=== PATIENT | male | born 1945 | race Caucasian/White ===

== ENCOUNTER 2022-05-09 09:46 | Observation (INO) | payer MEDICARE, BC ==
[~2022-05-09] VITALS: Ht 180.3 cm; Wt 104.7 kg
[2022-05-09 10:06] LABS: BASOPHILS ABSOLUTE AUTO 0.06 K/mm3 (0.00-0.23); BASOPHILS PERCENT AUTO 1 % (0-2); EOSINOPHILS PERCENT AUTO 3 % (0-6); Hematocrit 41.8 % (37.0-53.0); Hemoglobin 13.8 g/dL (13.5-17.5); IMMATURE GRAN ABSOLUTE AUTO 0.01 K/mm3 (0.00-0.10); IMMATURE GRAN PERCENT AUTO 0 % (0-1); LYMPHOCYTES ABSOLUTE AUTO 1.68 K/mm3 (0.84-5.20); LYMPHOCYTES PERCENT AUTO 24 % (21-46); MONOCYTES ABSOLUTE AUTO 0.69 K/mm3 (0.16-1.47); MONOCYTES PERCENT AUTO 10 % (4-13); Mean Corpuscular HGB 30.5 pg (26.0-34.0); Mean Corpuscular Volume 93 fL (80-100); NEUTROPHILS ABSOLUTE AUTO 4.38 K/mm3 (1.96-9.15); NEUTROPHILS PERCENT AUTO 63 % (41-73); Platelet Count 238 K/mm3 (150-400); RDW Coefficient Variation 13.3 % (11.7-14.2); RDW Standard Deviation 45.3 fL (35.1-46.3); Red Blood Cell Count 4.52 M/mm3 (4.30-5.90); White Blood Cell Count 7.02 K/mm3 (4.00-11.30)
[2022-05-09 10:37] LABS: Alanine Aminotransfer (ALT/SGP 33 U/L (12-78); Albumin, Blood 3.8 g/dL (3.4-5.0); Albumin/Globulin Ratio 1.2 (0.8-1.8); Alk Phos 62 U/L (50-136); Anion Gap 2 mmol/L (6-16); Aspartate Aminotrans (AST/SGOT 19 U/L (12-37); Bilirubin, Total 0.6 mg/dL (0.1-1.0); Blood Urea Nitrogen 23 mg/dL (8-24); Bun/Creatinine Ratio 20.2 (12.0-20.0); CO2, Blood 29 mmol/L (21-32); Calcium, Blood 10.1 mg/dL (8.5-10.1); Chloride, Blood 107 mmol/L (98-108); Creatinine, Blood 1.14 mg/dL (0.60-1.20); Ethanol (Alcohol), Blood, Med <3 mg/dL; Globulin, Blood 3.2 g/dL (2.2-4.0); Glomerular Filtration Rate 67 (60-); Glucose, Blood 129 mg/dL (70-99); Potassium, Blood 3.9 mmol/L (3.5-5.5); Sodium, Blood 138 mmol/L (136-145)
[2022-05-09 11:06] LABS: Source, Urine Clean Catch
[2022-05-09 11:18] LABS: Bilirubin, Urine Neg (Neg); Blood, Urine Neg (Neg); Glucose Qualitative, Urine Neg (Neg); Ketones, Urine Neg (Neg); Leukocyte Esterase, Urine Neg (Neg); Nitrite, Urine Neg (Neg); Protein, Urine Neg (Neg); Urobilinogen, Urine NORM (Normal)
[2022-05-09 11:19] LABS: Appearance, Urine Clear (Clear); Color, Urine Yellow (P-Yellow)
[2022-05-09 11:33] LABS: U Amphetamine Screen Not Detected; U Barbituate Screen Not Detected; U Benzodiazapine Screen Not Detected; U Buprenorphine Screen Not Detected; U Cannabinoids Screen Not Detected; U Cocaine Screen Not Detected; U Methadone Screen Not Detected; U Methamphetamine Screen Not Detected; U Opiates Screen Not Detected; U Oxycodone Screen Not Detected; U Phencyclidine Screen Not Detected; U Propoxyphene Screen Not Detected
[2022-05-09] MEDS ORDERED: QUIN10 PO (11:35)
--- NOTE | 2022-05-09 17:26 | NUR ---
LATE ENTRY/RECEIVED FROM ED RECEIVED REPORT FROM RAHAT CARPIO. RECEIVED PT TO ROOM 359 [facility] [employer]. PT PLACED HIMSELF INTO BED. MADE COMFORTABLE, ORIENTED TO ROOM AND UNIT ROOM. ADMIT DONE. PT A&O X 4. SLOW TO RESPOND TO QUESTIONS ASKED DURING ADMIT PROCESS THOUGH ANSWERED APPROPRIATELY. TELE PLACED, SHOWS NSR WITH HR 68. VSS. PT STATES HIS MD IN [place] IS DR. LILIANA ARRIAGA. HE ALSO STATES HE TAKES ELIQUIS, TRIAMTERENE-HCTZ AND QUINIPRIL 20 MG DAILY, A MULTI VIT AND USES A NASAL SPRAY NEEDED. HIS IS STAYING WITH THEIR MOTORHOME AT [facility]. THEY WERE GOING HOME TO [place] FROM AN EXTENDED STAY IN [place] SEEING FRIENDS.
--- NOTE | 2022-05-09 19:03 | NUR ---
SHIFT SUMMARY A&O X 4. VSS. NO CHANGES TO PT'S CONDITION ALTHOUGH SEEMS MORE RESPONSIVE, NOT SLOW TO RESPOND.
--- NOTE | 2022-05-09 19:29 | NUR ---
RECEIVED BEDSIDE REPORT. PT LYING IN BED WATCHING TV. A/O. RESP E/U ON RA. SR ON TELE. NO NEEDS AT THIS TIME. WILL PROVIDE CARE T/O SHIFT. CALL LT IN REACH.
--- NOTE | 2022-05-09 22:00 | NUR ---
PT RESTING QUIETLY. LYING ON LEFT SIDE. CALL LT IN REACH.
--- NOTE | 2022-05-10 00:17 | NUR ---
PILLOW GIVEN TO PT. NO OTHER NEEDS. CALL LT IN REACH.
--- NOTE | 2022-05-10 02:31 | NUR ---
PT RESTING QUIETLY. CALL LT IN REACH.
--- NOTE | 2022-05-10 04:00 | NUR ---
PT RESTING. CALL LT IN REACH.
--- NOTE | 2022-05-10 04:41 | NUR ---
SHIFT SUMMARY: PT HAS BE APPROPRIATE T/O SHIFT, USING CALL FOR NEEDS, UP TO BATHROOM INDEPENDENTLY, NO COMPLAINTS OF DIZZINESS, PAIN OR SOB. MENTATION HAS IMPROVED. HAS TALKED ABOUT THE REASON WHY HE AND HIS VISITED [place] AND HOW THEY WERE ON THE WAY HOME. PT HAS RESTED WELL. NO ACUTE CHANGES. WILL CONTINUE TO PROVIDE CARE UNTIL SHIFT REPORT TO ONCOMING NURSE.
--- NOTE | 2022-05-10 06:17 | NUR ---
RESTING QUIETLY. CALL LT IN REACH.
[2022-05-10] MEDS ORDERED: ELIQUIS5 M2 PO (13:46)
--- NOTE | 2022-05-10 15:06 | NUR ---
DC HOME RECEIVED DC HOME ORDERS. WRITTEN & VERBAL DC INSTRUCTIONS GIVEN TO PT, GOOD UNDERSTANDING VERBALIZED BY PT. PIV DC'D WITH CATH TIP INTACT, NO REDNESS OR SWELLING NOTED. MED SCRIPT FAXED TO [facility] ON [address]. PT AMBULATED SELF OUT ACCOMPANIED BY RN. TO DRIVE PT TO BACK TO THEIR MOT[facility]HOME AT [facility].
== END 2022-05-10 15:12 | disposition home or self-care (01) ==
LOC: ER 09:46 → MEDS 09:47
PROVIDERS: Emergency Medicine; ADMIT Internal Medicine
DX: G92.8 Other toxic encephalopathy (principal); I10 Essential (primary) hypertension; I48.0 Paroxysmal atrial fibrillation; I48.92 Unspecified atrial flutter; Z79.01 Long term (current) use of anticoagulants; Z86.73 Personal history of transient ischemic attack (TIA), and cerebral infarction without residual deficits
CPT/HCPCS: 70450; 70551; 80053; 81003; 82140; 84484; 85025; 93005; 93010; 96360; 96361; 97112; 97161; 99285-25; A9270; G0378; G0480; J7030